=== PATIENT | female | born 1965 | race Caucasian/White ===

== ENCOUNTER 2018-03-01 20:38 | Emergency (ER) | payer BC ==
[2018-03-01 20:47] VITALS: BP 138/65; TEMP 98.5
[2018-03-01] MEDS ORDERED: QBRELIS1 MG/1 ML (21:06)
[2018-03-01] MEDS ORDERED: VOLTAREN 75 DR75 MG PO (21:07)
[2018-03-01] MEDS ORDERED: ULTRAM 50MG TAB50 MG (21:07)
[2018-03-01] MEDS ORDERED: PREDNISONE20 MG PO (21:07)
[2018-03-01 21:34] LABS: BASO % 0.1 % (0.0-2.0); GRAN # 7.9 (1.4-6.5); GRAN % 80.2 % (42.2-75.2); HEMOGLOBIN 11.4 g/dl (12.5-16.0); LYMPH # 1.4 (1.2-3.4); LYMPH % 14.2 % (20.0-51.0); MEAN CELL VOLUME 93 fl (80.0-100.0); MEAN CORPUSCULAR HEMOGLOBIN 30 pg (27.0-31.0); MEAN CORPUSCULAR HGB CONC 33 g/dl (33.0-37.0); MEAN PLATELET VOLUME 9.8 fl (7.4-10.4); MONO # 0.5 (0.1-0.6); MONO % 4.8 % (1.7-9.3); PLATELET COUNT 283 K/mm3 (130-400); RED BLOOD COUNT 3.79 M/mm3 (4.10-5.30); REDCELL DISTRIBUTION WIDTH-CV 15.8 % (11.5-14.5)
[2018-03-01 21:35] LABS: HEMATOCRIT 35.1 % (37.0-47.0)
[2018-03-01 21:46] LABS: ALBUMIN 3.3 gm/dL (3.5-5.0); BILIRUBIN,TOTAL 0.4 mg/dL (0.0-1.0); CREATININE, serum 0.84 mg/dL (0.52-1.25); POTASSIUM 3.9 mmol/L (3.4-5.0)
[2018-03-01 22:09] VITALS: PULSE 73
== END 2018-03-01 22:09 | disposition home or self-care (01) ==
LOC: COL.ER 20:38
PROVIDERS: Physician Assistant
DX: M79.661 Pain in right lower leg (principal); X50.0XXA Overexertion from strenuous movement or load, initial encounter

== ENCOUNTER → 2018-03-25 | Outpatient (CLI) | payer BC ==
[~2018-03-25] MED LIST: PREDNISONE20 MG PO; QBRELIS1 MG/1 ML; ULTRAM 50MG TAB50 MG; VOLTAREN 75 DR75 MG PO
== END ==
LOC: MC.RAD 08:08
DX: Z12.31 Encounter for screening mammogram for malignant neoplasm of breast (principal)